=== PATIENT | male | born 1960 | race Caucasian/White ===

== ENCOUNTER 2025-07-28 12:52 | Emergency (ER) | payer MEDICARE, OTHER ==
[~2025-07-28] VITALS: Ht 177.8 cm; Wt 91.0 kg
[2025-07-28 13:20] VITALS: TEMP 37.2; O2SAT 100
[2025-07-28] MEDS ORDERED: MUPI1OIN4 TP (18:13)
[2025-07-28 18:26] VITALS: BP 123/73; PULSE 61; RESP 14; O2SAT 99
== END 2025-07-28 18:29 | disposition home or self-care (01) ==
LOC: ER 12:52
DX: M25.572 Pain in left ankle and joints of left foot (principal); I10 Essential (primary) hypertension; E78.00 Pure hypercholesterolemia, unspecified; Z98.890 Other specified postprocedural states
CPT/HCPCS: 73610; 99283